=== PATIENT | male | born 1985 | race Caucasian/White ===

== ENCOUNTER 2018-10-09 21:19 | Emergency (ER) | payer SELFPAY ==
[~2018-10-09] VITALS: Ht 180.3 cm; Wt 78.0 kg
[2018-10-09 21:25] VITALS: BP_SYST 146
[2018-10-09] MEDS ORDERED: IBUPROFEN 800 MG TABLET PO ONE (23:00)
[2018-10-09 23:05] VITALS: BP_SYST 146
== END 2018-10-09 23:05 | disposition home or self-care (01) ==
LOC: SED 21:19
DX: S50.11XA Contusion of right forearm, initial encounter (principal); X58.XXXA Exposure to other specified factors, initial encounter; Y93.89 Activity, other specified; Y92.89 Other specified places as the place of occurrence of the external cause; Y99.8 Other external cause status; V89.2XXA Person injured in unspecified motor-vehicle accident, traffic, initial encounter; Y92.411 Interstate highway as the place of occurrence of the external cause
CPT/HCPCS: 73090; 99283